=== PATIENT | male | born 1965 | race Native Hawaiian/Other Pacific Islander ===

== ENCOUNTER 2022-09-13 09:30 | Emergency (ER) | payer OTHER ==
[~2022-09-13] VITALS: Ht 165.1 cm; Wt 81.6 kg
[2022-09-13 09:34] VITALS: TEMP 97.3
[2022-09-13 10:18] LABS: PLATELET COUNT 252 K/uL (142-355)
[2022-09-13 10:26] LABS: POTASSIUM 4.2 mmol/L (3.6-5.2)
[2022-09-13 13:03] VITALS: BP 110/65
== END 2022-09-13 13:03 | disposition short-term general hospital (02) ==
LOC: ED 09:30
PROVIDERS: Internal Medicine
DX: K56.699 Other intestinal obstruction unspecified as to partial versus complete obstruction (principal); K42.0 Umbilical hernia with obstruction, without gangrene; X50.0XXA Overexertion from strenuous movement or load, initial encounter; Y92.89 Other specified places as the place of occurrence of the external cause
CPT/HCPCS: 36415; 80053; 85007; 85027; 96360; 96374; 96375; 99285; J0690; J2270; J2405; J3010; Q9963